=== PATIENT | female | born 1945 | race Caucasian/White ===

== ENCOUNTER 2017-01-16 12:24 | Emergency (ER) | payer OTHER ==
[2017-01-16 12:47] VITALS: PULSE 73; RESP 18; TEMP 97.9; O2SAT 96
[2017-01-16 12:51] VITALS: BP 113/75
--- NOTE | 2017-01-16 14:34 | EDPHY ---
General Narrative: CHIEF COMPLAINT: Fall, knee pain, wrist pain HISTORY OF PRESENT ILLNESS: patient was at work today when she tripped and fell , landing on her right knee and right hand. She noted a sudden onset of pain in the right patella. Some [id number] pain. Worse with any kind of palpation or weight-bearing. Also worse with bending the knee. Improved at rest. Does not radiate. No numbness or tingling. Mild right wrist pain that does not involve the snuffbox. Pain is nearly resolved in the wrist. It was worse with palpation but has improved to near resolution. She also struck her right cheek but she did not lose consciousness. She has no headache or dizziness. No nausea or vomiting. No other associated complaints or modifying factors. REVIEW OF SYSTEMS: Ten systems reviewed and are negative unless otherwise noted in the HPI EXAMINATION General Appearance: Alert, no distress Cardiovascular: Pulses normal throughout. Symmetric radial and DP pulses are 2 +. Brisk cap refill Neurological: A&O, sensory symmetric, strength symmetric At 5/5. Skin: Warm and dry, no rash . No lacerations, abrasions or contusions. Extremities: Right knee is tender palpation at the patella and patellar tendon. There is no crepitus. No laxity. No effusion. Range of motion is intact but painful. There is mild tenderness about the right wrist and nonspecific region. No point tenderness of any bony add structure or the snuffbox. Range of motion is fully intact. The interossei are intact with symmetric strength. Range of motion in the extremities otherwise within normal limits Psychiatric: Mood and affect normal DIFFERENTIAL DIAGNOSES: Including but not limited to Contusion, sprain, strain, fracture, dislocation , fracture dislocation MDM: 2:20 p.m. mechanical fall involving her right knee and wrist. Her pain is on the right patella. On my interpretation of the x-ray there may be a lateral patellar fracture. She is neurovascular intact with no significant effusion or outward signs of trauma. She does have a mild right wrist pain without any bony tenderness or tenderness in the snuff box. She did strike her face without any outward signs of trauma or intracranial injury. Plan for or Daren wrap and discharged home awaiting the formal interpretation of the x-ray. 3:40 p.m. radiologist contacted us regarding the x-ray. There is a possible lateral patellar margin fracture. This is only visible on one view. I agree with this read, and it fits the clinical scenario. She is quite tender on the lateral aspect of the right patella. She remains neurovascular intact. I discussed CT scan versus immobilization and follow up with Orthopedics. I do feel that she does not need a CT scan at this time, as we can't treat her clinically without the imaging. She will be placed in a straight leg knee immobilizer, provided crutches, and referred to Orthopedics for definitive care. She is to remain nonweightbearing if painful weight-bearing as tolerated if she improves. Return to the ER for worsening pain. She is comfortable with this plan and discharged home in stable conditions. ED Precautions: Worsening pain. Erythema, edema, cyanosis, pallor, paresthesia or anesthesia. SUPERVISION: This patient was independently evaluated without the aide of supervising physician. - History Smoking Status: Never smoked - Objective Vital Signs: Initial Vital Signs Temperature (C) 97.9 F 01/16/17 12:43 Heart Rate 73 01/16/17 12:43 Respiratory Rate 18 01/16/17 12:43 Blood Pressure 113/75 01/16/17 12:43 O2 Sat (%) 96 01/16/17 12:43 O2 Delivery Mode Room Air Allergies/Adverse Reactions: No Known Allergies Allergy (Verified 01/16/17 12:47) Home Medications: Medication Instructions Recorded Ambien 09/05/13 Imitrex 09/05/13 Prilosec 09/05/13 Fosamax 35 MG 01/16/17 Gabapentin 01/16/17 Departure - Departure Disposition: Home, Routine, Self-Care Clinical Impression: Knee contusion Qualifiers: Encounter type: initial encounter Laterality: right Qualified Code(s): S80.01XA - Contusion of right knee, initial encounter Patellar fracture Qualifiers: Encounter type: initial encounter Fracture type: closed Fracture morphology: unspecified fracture morphology Fracture alignment: nondisplaced Laterality: right Qualified Code(s): S82.001A - Unspecified fracture of right patella, initial encounter for closed fracture Condition: Good Instructions: Patellar Fracture (ED) Additional Instructions: Nonweightbearing on the right lower extremity until seen by Orthopedics later this week. Crutches as discussed. Referrals: Laila Comer MD [Primary Care Provider] - As per Instructions Sukumar Philip MD [Medical Doctor] - As per Instructions
== END 2017-01-16 16:30 | disposition home or self-care (01) ==
DX: S82.001A Unspecified fracture of right patella, initial encounter for closed fracture (principal); W01.0XXA Fall on same level from slipping, tripping and stumbling without subsequent striking against object, initial encounter; Y92.69 Other specified industrial and construction area as the place of occurrence of the external cause; Y99.0 Civilian activity done for income or pay; Y93.89 Activity, other specified
CPT/HCPCS: L1830

== ENCOUNTER → 2017-07-05 | Outpatient (CLI) | payer OTHER | LOC: FIMAGING 14:11 | PROVIDERS: ATTEND Family Medicine | DX: M25.551 Pain in right hip (principal); M25.552 Pain in left hip; M54.5 Low back pain ==

== ENCOUNTER → 2017-07-10 | Outpatient (CLI) | payer OTHER | LOC: FIMAGING 15:33 | PROVIDERS: ATTEND Family Medicine | DX: M51.86 Other intervertebral disc disorders, lumbar region (principal) ==

== ENCOUNTER → 2017-08-28 | Outpatient (CLI) | payer OTHER | LOC: FIMAGING 08-24 13:23 | PROVIDERS: ATTEND Family Medicine | DX: Z12.31 Encounter for screening mammogram for malignant neoplasm of breast (principal); Z13.820 Encounter for screening for osteoporosis; M81.0 Age-related osteoporosis without current pathological fracture; M54.5 Low back pain; M25.559 Pain in unspecified hip | CPT/HCPCS: G0202 ==